=== PATIENT | male | born 1985 | race African-American/Black ===

== ENCOUNTER 2021-03-20 16:47 | Emergency (ER) | payer SELFPAY ==
[~2021-03-20] VITALS: Ht 175.3 cm; Wt 70.0 kg
[2021-03-20 17:03] VITALS: BP 92/53
[2021-03-20] MEDS ORDERED: ACETAMINOPHEN 325MG TABLET PO STA (19:23)
== END 2021-03-20 21:47 | disposition left against medical advice (07) ==
LOC: ER 16:47
DX: R55 Syncope and collapse (principal); R40.2410 Glasgow coma scale score 13-15, unspecified time; W18.2XXA Fall in (into) shower or empty bathtub, initial encounter; Y93.F1 Activity, caregiving, bathing; Y92.9 Unspecified place or not applicable
CPT/HCPCS: 93005; 99283